=== PATIENT | male | born 1950 | race Caucasian/White ===

== ENCOUNTER 2017-05-31 18:50 | Inpatient (IN) ==
[~2017-05-31 18:50] MED LIST: *HR* Atropine Sulfate 1 MG/10 ML SYRINGE IV ONE
[2017-05-31] MEDS ORDERED: 0.9 % Sodium Chloride 1,000 ML ONE ×3 (18:54→19:15)
[2017-05-31] MEDS ORDERED: *HR* Heparin 5,000 UNIT/ML VIAL ONE (18:54)
[2017-05-31] MEDS ORDERED: *HR* Ticagrelor 90 MG TABLET ONE (18:54)
[2017-05-31] MEDS ORDERED: *HR* Heparin 5,000 UNIT/ML VIAL IVP ONE (18:54)
[2017-05-31] MEDS ORDERED: *HR* Ticagrelor 90 MG TABLET PO ONE (18:54)
--- NOTE | 2017-05-31 18:57 | Emergency Department Note ---
Disposition Clinical Impression: Acute anterior wall TN Disposition: Admitted As Inpatient Condition: Critical Forms: ED Satisfaction Letter Time of Disposition: 19:00 Chest Pain HPI - General Chief Complaint: ED Chest Pain Stated Complaint: STEMI Time Seen by Provider: 05/31/17 18:51 Source: patient, EMS Mode of arrival: EMS Limitations: no limitations Vital Signs Reviewed: Yes Nursing Notes Reviewed: Yes - History of Present Illness HPI Narrative: 66-year-old who developed chest pain about 2-1/2 hours ago seen at the [facility] found to have an acute inferior TN. Patient has no history of previous TN according to the patient. No bleeding problems. The EKG from the PA shows ST segment elevation in 23 aVF with depression in V1 and V2. Pt complaint: chest pain Onset (ago): hour(s) (2) Duration: constant Onset: during rest Pain Location: substernal, left chest Severity: moderate Severity scale (1-10): 3 Quality: tightness, aching, heaviness Pain Radiation: none Improves with: nothing Worsens with: nothing Associated symptoms: Reports: dyspnea Treatments prior to arrival chest pain: aspirin - Related Data Home Medications Medication Instructions Recorded Confirmed Albuterol Sulfate [Albuterol 2 puff IH QID PRN 05/31/17 05/31/17 Inhaler] Amlodipine Besylate 10 mg PO DAILY 05/31/17 05/31/17 Budesonide/Formoterol 160/4.5 2 puff IH BIDR 05/31/17 05/31/17 [Symbicort 160/4.5] Calcium Acetate [Phos-LO] 667 mg PO TIDWM 05/31/17 05/31/17 Ergocalciferol (VITAMIN D2) 800 unit PO DAILY 05/31/17 05/31/17 [Vitamin D] Omeprazole [PriLOSEC] 20 mg PO DAILY 05/31/17 05/31/17 Tiotropium [Spiriva] 18 mcg IH 0700 05/31/17 05/31/17 hydroCHLOROthiazide 25 mg PO DAILY 05/31/17 05/31/17 [Hydrochlorothiazide] Allergies Allergy/AdvReac Type Severity Reaction Status Date / Time No Known Allergies Allergy Verified 05/31/17 18:53 Constitutional: Denies: fever, chills, weakness, weight change Eyes: Denies: eye pain, eye discharge, vision change ENT ED: Denies: ear pain, throat pain, dental pain, hearing loss, epistaxis, congestion, dysphagia Cardiovascular: Reports: chest pain. Denies: palpitations, dyspnea on exertion , edema, syncope Respiratory: Denies: cough, dyspnea, wheezes, hemoptysis, stridor Gastrointestinal: Denies: abdominal pain, nausea, vomiting, diarrhea, constipation, hematemesis, melena, hematochezia Genitourinary: Denies: urgency, dysuria, frequency, hematuria Musculoskeletal: Denies: back pain, neck pain, arthralgia, myalgia Integumentary: Denies: rash, abrasion, lesions Neurological: Denies: headache, weakness, numbness, paresthesias, confusion, abnormal gait, vertigo Psychiatric: Denies: anxiety, depression, suicidal thoughts, homicidal thoughts , auditory hallucinations, visual hallucinations Endocrine: Denies: fatigue Hematological/Lymphatic: Denies: easy bleeding, easy bruising Allergic/Immunologic: Denies: facial swelling, urticaria Physical Exam - General Limitations: no limitations General appearance: alert, in no apparent distress - Head Head exam: atraumatic, normocephalic, normal inspection - Eye Eye exam: Present: normal appearance, PERRL, EOMI - ENT ENT exam: normal exam, normal oropharynx, mucous membranes moist - Neck Neck exam: Present: normal inspection - Chest Chest inspection: Present: normal inspection, symmetric chest wall rise - Respiratory Respiratory exam: Present: normal lung sounds bilaterally - Cardiovascular Cardiovascular exam: Present: regular rate, normal rhythm, normal heart sounds - Abdominal Exam Abdominal exam: Present: soft, Non-Tender. Absent: tenderness, distention, guarding, rebound, rigidity - Extremities Exam Extremities exam: Present: normal inspection, full ROM. Absent: tenderness, pedal edema - Expanded Lower Extremity Exam Neurovascular/Tendon exam: Absent: motor deficit, sensory deficit, tendon deficit Gait: not tested/not observed - Back Exam Back exam: Present: normal inspection, full ROM. Absent: tenderness - Neurological Exam Neurological exam: Present: alert, oriented X3 - Psychiatric Psychiatric exam: Present: normal affect, normal mood - Skin Skin exam: Present: warm, dry, intact, normal color Course - Consultations Consultation #1: Discussed with , it. Time: 19:00 Chest Pain - EKG Data EKG attestation: Yes I reviewed and interpreted this EKG. EKG shows normal: sinus rhythm Rate: normal Rhythm: NSR ST segment elevation in: II, III, aVF ST segment depression in: v1, v2 Interpretation: acute TN Heart Score - Score History: Highly Suspicious EKG: Significant ST-Depression Age: Greater than 65 Risk Factors: Equal/Greater than 3 risk factor or history of atherosclerotic disease Troponin: 1-3x normal limit HEART Score Total: 9 Critical Care Time Critical Care Time: Yes Total Critical Care Time: 30 Attestation: The high probability of a clinically significant, sudden or life threatening deterioration of the [cardiovascular] system(s) required my full and direct attention, intervention and personal management. The aggregate critical care time was [30] minutes. This time is in addition to time spent performing reported procedures but includes the following: [x] Data Review and interpretation [x] Patient assessment and monitoring of vital signs [x] Documentation [x
[2017-05-31] MEDS ORDERED: Heparin 1,000 UNITS/500 mL NS 500 ML ONE (19:04)
[2017-05-31] MEDS ORDERED: *HR* Heparin 10,000 UNIT/10 ML VIAL ONE (19:04)
[2017-05-31 19:06] LABS: Basophils % 0.4 %; Eosinophils # 0.1 K/mcL (0.0-0.6); Eosinophils % 1.3 %; Hemoglobin 12.9 g/dL (12.9-16.9); Immature Granulocytes % 0.4 % (0-4); Immature Platelets 3.2 % (1.1-6.1); Lymphocytes # 1.6 K/mcL (0.6-4.6); Lymphocytes % 16.5 %; Mean Corpuscular HGB Conc 32.3 g/dL (31.6-35.5); Mean Corpuscular Hemoglobin 29.4 pg (28.0-33.3); Mean Corpuscular Volume 91.1 fL (83.0-100.0); Mean Platelet Volume 9.2 fL (9.4-12.4); Monocytes # 0.5 K/mcL (0.0-1.3); Monocytes % 5.4 %; Neutrophils # 7.2 K/mcL (1.6-8.9); Platelet Count 227 K/mcL (140-400); Red Blood Count 4.39 M/mcL (4.19-5.50)
[2017-05-31] MEDS ORDERED: Nitroglycerin 1,000 MCG/10 ML VIAL IV ONE (19:10)
[2017-05-31 19:13] LABS: INR 1.1; Prothrombin Time 12.3 Seconds (9.4-12.1)
[2017-05-31 19:15] LABS: Activated Partial Thrombo Time 28.8 Seconds (26.0-36.0)
[2017-05-31 19:17] LABS: Calcium 10.4 mg/dL (8.6-10.8); Potassium 3.7 mEq/L (3.5-4.5)
[2017-05-31] MEDS ORDERED: *HR* FentaNYL (PF) 100 MCG/2 ML VIAL ONE (19:23)
[2017-05-31] MEDS ORDERED: *HR* Midazolam HCl 2 MG/2 ML VIAL ONE (19:24)
[2017-05-31] MEDS ORDERED: Tirofiban 12.5 MG/250ML 12.5 MG/250 ML BAG ONE (19:30)
[2017-05-31] MEDS ORDERED: DOPamine Premix 0 MG/0 ML BAG ONE (19:39)
[2017-05-31] MEDS ORDERED: *HR* Atropine Sulfate 1 MG/10 ML SYRINGE ONE ×2 (20:02→22:04)
--- NOTE | 2017-05-31 20:15 | Cardiology History & Physical ---
Date of Encounter: 05/31/17 Time of Encounter: 20:13 Assessment and Plan (1) ST elevation myocardial infarction (STEMI) of inferior wall Current Visit: Yes Status: Acute The assessment and plan as outlined above was discussed with the patient and/or family members who expressed understanding and agreement. All questions were answered. Typical angina with inferior STEMI on EKG, R/B/A discussed with pt agrees to proceed. History of Present Illness Chief complaint: chest pain HPI: Mr. Bales is a 66 year old male with h/o COPD, HTN, active smoker who presents with RSCP tightness [facility] found to have inferior ST elevations on EKG. Pain is non radiating ongoing with no radiation or associated symptoms. Emergent LHC was discussed including the R/B/ A and the patient agreed to proceed. ACS meds administered in the ED Past Med Surg Social Fam HX - Past Medical History Medical history: COPD, hypertension Psychiatric history: no psych history - Social History Smoking Status: Current every day smoker Smokeless Tobacco Status: No Alcohol use: none Drug use: marijuana Medications and Allergies Albuterol Sulfate [Albuterol Inhaler] 2 puff IH QID PRN 05/31/17 [History] Amlodipine Besylate 10 mg PO DAILY 05/31/17 [History] Budesonide/Formoterol 160/4.5 [Symbicort 160/4.5] 2 puff IH BIDR 05/31/17 [ History] Calcium Acetate [Phos-LO] 667 mg PO TIDWM 05/31/17 [History] Ergocalciferol (VITAMIN D2) [Vitamin D] 800 unit PO DAILY 05/31/17 [History] Omeprazole [PriLOSEC] 20 mg PO DAILY 05/31/17 [History] Tiotropium [Spiriva] 18 mcg IH 0700 05/31/17 [History] hydroCHLOROthiazide [Hydrochlorothiazide] 25 mg PO DAILY 05/31/17 [History] 3 Allergy/AdvReac Type Severity Reaction Status Date / Time No Known Allergies Allergy Verified 05/31/17 18:53 All Systems Review: A 10-system review of systems was performed and is negative for pertinent findings except as documented above in the HPI. Physical Examination General: Conversant, No Apparent Distress HEENT: Atraumatic, Normocephaly, Mucus Membranes Moist Neck: No JVD, Normal carotid pulses Cardiac: Reg Rate and Rhythm, Normal S1 and S2, No Murmur Lungs: Normal Breath Sounds, No Wheeze, Rales, Rhonchi Neuro: Alert and responsive, No focal deficits noted Abdomen: Soft, Non-Tender Skin: No rashes noted on visualized skin Musculoskeletal: No Chest Wall Tenderness Extremities: No Clubbing, No Cyanosis, No Edema, Normal Pulses Results 05/31/17 18:56 05/31/17 18:56
[2017-05-31] MEDS ORDERED: Tirofiban 12.5 MG/250ML 12.5 MG/250 ML BAG IVC SCH (20:30)
--- NOTE | 2017-05-31 20:53 | Invasive Diagnostic Lab Proc ---
Name: Tito Bales Date of Study: 05/31/2017 Date: 1950 Ht: 70.9in Medical Record#: [id number] Age: 66 Wt: 213.85lb Gender: Male BSA: 2.17 Order #: [id number] BMI: 29.94 Physicians Procedure Physician: Jose Kebede MD Referring MD: [facility] Referring MD: Staff Name Position Time In Alejandra Burnett RT (R) Scrub 07:24 PM Vibha Marroquin RN Heating And Ventilation Engineer 07:25 PM Pola Terrazas RN Monitor 07:25 PM Debbie Driscoll RT (R) Monitor 07:25 PM Indications Indication STEMI Procedures Performed Procedure L HRT ARTERY/VENTRICLE ANGIO PRQ CARD REVASC MA 1 VSL Pre-Procedure Checklist Informed consent is complete signed and on chart. H&P is on chart. ID band is on and ID verified with patient. Patient NPO for procedure The procedure was described for the patient and questions were answered. ECG is on chart. Plan of Care Patient will tolerate the procedure without complications. Adequate level of comfort will be maintained. Hemodynamics will remain stable Patient will recover from procedure without complications. Respiratory function will be maintained. Cardiac rhythm will remain stable. Patient temperature will be maintained. Patient and/or family have verbalized understanding of the procedure. Patient Education Intravenous Access Time IV Size Location DC'd Fluid/Drip Rate Units RN 08:21 PM 18g 1 1/4" Patent On Arrival Lt Antecubital 0.9NaCl 25 ml/hr Vibha Marroquin RN 08:21 PM 20g 1 1/4" Patent On Arrival Rt Forearm Vibha Marroquin RN Allergies No Known Allergies Vital Signs Time BP (mmHg) HR (bpm) O2 Sat. RR (bpm) LOC 07:24 PM 170 / 101 96 91 % 18 07:29 PM 153 / 94 98 91 % 25 07:34 PM 150 / 86 91 93 % 12 07:36 PM 118 / 77 34 94 % 12 07:38 PM 90 / 66 103 96 % 20 07:43 PM 99 / 70 83 95 % 27 07:48 PM 104 / 69 79 93 % 13 07:52 PM 101 / 69 76 92 % 10 07:53 PM 105 / 71 80 91 % 11 07:59 PM 108 / 67 71 92 % 13 08:04 PM 102 / 71 78 91 % 15 08:09 PM 106 / 74 80 92 % 13 Procedural Medications Time Medication Dose Units Method Given By 07:25 PM Oxygen 2 L/min nasal cannula Vibha Marroquin RN 07:25 PM Versed 1 mg Intravenous Vibha Marroquin RN 07:25 PM Fentanyl 50 mcg Intravenous Vibha Marroquin RN 07:27 PM Lidocaine 2% 10 ml Subcutaneous Jose Kebede MD 07:28 PM Fentanyl 25 mcg Intravenous Vibha Marroquin RN 07:37 PM Atropine 1 mg Intravenous Vibha Marroquin RN 07:49 PM Aggrastat Bolus: 50 ml Intravenous LopezVibha sanchez RN 07:49 PM Aggrastat 5mg/100ml 18 ml/hr Intravenous Vibha Marroquin RN ASA Classification: Emergent Procedure: ASA score is assumed Luis F Score Preprocedure Postprocedure Activity 2- Moves 4 extremities sustained head lift Activity Circulation 2- SBP +/= 20 points of pre-anesthetic level Circulation Consciousness 2- Awake and alert oriented x 3 Consciousness O2 Saturation 1- Needs O2 inhalation to maintain O2 saturation of 90% O2 Saturation Respiratory 2- Able to deep breathe and cough well Respiratory Total Score 9 Total Score Contrast Agent: Isovue Diagnostic Contrast: 196 ml Total Contrast: 196 ml Fluoro Dose: 1367 mGy Activated Clotting Time Time Seconds to Clot 08:01 PM 323 Procedure Log Time Note Enter By 07:16 PM Pt arrived to research lab assistant 1 at 19:16 tsites 07:17 PM Alejandra Burnett RT (R) Position: Scrub Time in: 19:24 tsites 07:17 PM Vibha Marroquin RN Position: Heating And Ventilation Engineer Time in: 19:25 tsites 07:17 PM Pola Terrazas RN Position: Monitor Time in: 19:25 tsites 07:17 PM Debbie Driscoll RT (R) Position: Monitor Time in: 19:25 tsites 07:23 PM Vitals capture started with the following parameters, Patient=Adult, Interval=5 min, Initial Xnsgznlh=684 mmHg, Deflation Rate=5 mmHg, Cuff placed on Left Arm 07:24 PM HR=96 bpm, QNJP=787/101 mmhg, SpO2=91.0 %, Resp=18 B/min 07:25 PM Patient charges- Angio tray pack, Navilyst 3mm J, Pulse Oximetry and ACIST tubing and transducer tsites 07:25 PM Case Delayed No tsites 07:25 PM Physician arrived 19:25 tsites 07: PM Meet and greet completed tsites 07: PM Procedure start 19:25 tsites 07: PM Time: 19:25 Oxygen on at 2 L/min per nasal cannula by Vibha Marroquin RN tsites 07: PM Time: 19:25 Versed 1 mg Intravenous Given by Vibha Marroquin RN tsites 07: PM Time: 19:25 Fentanyl 50 mcg Intravenous Given by Vibha Marroquin RN tsites 07: PM Recorded ECG: TR=218 Condition=Condition 1 07: PM Time out performed according to hospital policy tsites 07: PM Time: 19:27 10 ml Lidocaine 2% to right groin Subcutaneous Given by Jose Kebede MD tsites 07:28 PM PCI Status Emergency tsites 07: PM Pressure channel 1 zeroed. 07:28 PM Inflation device was opened. tsites 07:28 PM Time: 19:28 Fentanyl 25 mcg Intravenous Given by Vibha Marroquin RN tsites 07:28 PM Pressure channel 1 zero failed. 07:29 PM Pressure channel 1 zeroed. 07:29 PM HR=98 bpm, TLXB=037/94 mmhg, SpO2=91.0 %, Resp=25 B/min 07:29 PM Micro-Introducer Kit utilized for sheath placement tsites 07:29 PM Access obtained by percutaneous puncture. 6Fr 10cm Terumo Coleraine sheath placed in right Femoral artery. [id number] tsites 07:29 PM 0.035 145cm Navilyst 3mmJ wire [id number] tsites 07:30 PM Recorded Pressure: Ao, HR=97, Condition=Condition 1 (Aorta) Ao 145/88/111 07:30 PM 6Fr JR 4 [place] Bright-Tip guide catheter was used to cannulate the PCI vessel successfully. reused? No tsites 07:30 PM RCA angiography performed in multiple views. tsites 07:31 PM .014 Fielder 180cm guide wire across target lesion- successful. reused? No tsites 07:34 PM HR=91 bpm, WGZT=303/86 mmhg, SpO2=93.0 %, Resp=12 B/min, Comment=sr 07:34 PM RCA lesion crossed with wire tsites 07:35 PM troponin 0.23, dr. moussa notified, plan of care remains the same csmith 07:36 PM NIBP STAT measurement started. 07:36 PM 2.0 mm x 12 mm Emerge Monorail balloon across target lesion- successful. reused? No csmith 07:36 PM Balloon inflated @ 10 martín for 11 seconds csmith 07:36 PM HR=34 bpm, IVVE=765/77 mmhg, SpO2=94.0 %, Resp=12 B/min 07:37 PM Balloon inflated @ 6 martín for 5 seconds csmith 07:37 PM Time: 19:37 Atropine 1 mg Intravenous Given by Vibha Marroquin RN csmith 07:37 PM NIBP STAT measurement started. 07:38 PM XV=064 bpm, NIBP=90/66 mmhg, SpO2=96.0 %, Resp=20 B/min 07:38 PM balloon removed intact csmith 07:41 PM 2.5 mm x 15 mm Emerge Monorail balloon across target lesion- successful. reused? No csmith 07:41 PM Balloon inflated @ 6 martín for 5 seconds csmith 07:41 PM Balloon inflated @ 6 martín for 5 seconds csmith 07:41 PM Balloon inflated @ 6 martín for 6 seconds csmith 07:42 PM Balloon inflated @ 6 martín for 6 seconds csmith 07:42 PM Balloon inflated @ 10 martín for 4 seconds csmith 07:42 PM PCI lesion in Mid RCA. Pre Stenosis: 100 Pre CONNER Flow: 0 csmith 07:43 PM HR=83 bpm, NIBP=99/70 mmhg, SpO2=95.0 %, Resp=27 B/min 07:45 PM balloon removed intact csmith 07:45 PM 3.5mm x 16mm Synergy drug-eluting stent across target lesion- successful Lot #[id number] distal RCA csmith 07:46 PM Stent deployed @ 11 martín for 4 seconds csmith 07:47 PM Stent balloon reinflated @ 16 martín for 10 seconds csmith 07:47 PM Stent balloon reinflated @ 9 martín for 5 seconds csmith 07:48 PM Stent balloon reinflated @ 10 martín for 5 seconds csmith 07:48 PM Stent balloon reinflated @ 10 martín for 3 seconds csmith 07:48 PM HR=79 bpm, RRIG=647/69 mmhg, SpO2=93.0 %, Resp=13 B/min 07:49 PM Time: 19:49 Aggrastat Bolus: 50 ml Intravenous Given by Boutte, Vibha RN Vargas IV pump csmith 07:49 PM Time: 19:49 Aggrastat 5mg/100ml 18 ml/hr Intravenous Given by Vibha Marroquin RN Vargas pump csmith 07:49 PM stent delivery system removed intact csmith 07:51 PM 4.0mm x 28mm Synergy drug-eluting stent across target lesion- successful Lot #[id number] csmith 07:51 PM NIBP STAT measurement started. 07:52 PM HR=76 bpm, CSUC=388/69 mmhg, SpO2=92.0 %, Resp=10 B/min 07:52 PM Stent deployed @ 9 marítn for 9 seconds csmith 07:53 PM Stent balloon reinflated @ 14 martín for 9 seconds csmith 07:53 PM HR=80 bpm, FWLZ=389/71 mmhg, SpO2=91.0 %, Resp=11 B/min 07:55 PM PCI lesion in Distal RCA. Pre Stenosis: 100 Pre CONNER Flow: 0: No Flow/No perfusion csmith 07:55 PM stent delivery system removed intact csmith 07:56 PM 4.0mm x 8mm Synergy drug-eluting stent across target lesion- successful Lot #[id number] csmith 07:57 PM Stent deployed @ 14 martín for 4 seconds csmith 07:58 PM Stent balloon reinflated @ 14 martín for 6 seconds csmith 07:59 PM HR=71 bpm, WNSO=752/67 mmhg, SpO2=92.0 %, Resp=13 B/min 08:00 PM stent delivery system removed intact csmith 08:01 PM 4.0 mm x 12mm NC Emerge balloon across target lesion- successful. reused? No csmith 08:01 PM At 20:01 the ACT was 323 seconds. csmith 08:02 PM wire and balloon removed (undeployed & intact) csmith 08:03 PM catheter removed csmith 08:03 PM 6Fr FL 4 catheter inserted over the wire DNC csmith 08:04 PM HR=78 bpm, AENR=293/71 mmhg, SpO2=91.0 %, Resp=15 B/min 08:04 PM LCA angiography performed in multiple views. csmith 08:05 PM Lesion found in Mid Circumflex. Pre Stenosis: 50 Pre CONNER Flow: 3: Complete and Brisk Flow/Perfusion csmith 08:05 PM Lesion found in Distal Circumflex. Pre Stenosis: 75 Pre CONNER Flow: 3: Complete and Brisk Flow/Perfusion csmith 08:05 PM catheter removed csmith 08:05 PM 6Fr Pigtail catheter inserted over the wire DNC csmith 08:05 PM Catheter selectively placed in left ventricle csmith 08:06 PM Pain 'pretty much gone' per patient csmith 08:06 PM Recorded Pressure: LV, HR=79, Condition=Condition 1 (Left Ventricle) LV 89/10/14 08:06 PM Bolus angiogram of left Ventricle complete: 10 ml/sec for a total of 20 mls csmith 08:07 PM Recorded Pressure: LV, Ao, HR=80, Condition=Condition 1 (Left Ventricle) LV 70/22/22, (Aorta) Ao 79/49/65 08:07 PM Catheter removed csmith 08:08 PM wire removed csmith 08:09 PM HR=80 bpm, MUIH=852/74 mmhg, SpO2=92.0 %, Resp=13 B/min 08:13 PM bolus angio of R femoral artery 4 for 7 csmith 08:13 PM Procedure completed at 20:13 csmith 08:14 PM Sign out completed: Radiation Dose 1367 mGy Fluoro Time: 15.6 Isovue 370 - 200ml contrast 196 ml given by Jose Kebede MD. Complications: NoneCardiac Rehab Consult needed: YesConfirmed administered medications: Yes csmith 08:14 PM Isovue 370 - 200ml,1 Bottle(s) used. csmith 08:14 PM Sheath left in place to be pulled on floor/holding area csmith 08:14 PM Estimated Blood Loss: less than 20cc csmith 08:15 PM Post ECG NSR csmith 08:15 PM Post Blood Pressure 119/77 csmith 08:15 PM Information taught PCI csmith 08:15 PM Education needs Responsibilities of Patient in Care csmith 08:15 PM Learning barriers :None csmith 08:15 PM Education Methods Verbal csmith 08:15 PM Education evaluation Able to repeat information csmith 08:15 PM Site status No bleeding/hematoma - Rt Groin as reported by Alejandra Burnett RT (R) at 20:15 csmith 08:15 PM Opsite applied csmith 08:15 PM Plavix, Effient or Brilinta given No - given in ED csmith 08:15 PM Family placed in consult room. csmith 08:17 PM 20:16 Post Pulses Bilateral DP Doppler csmith 08:26 PM Report given to Conner BURK. Awaiting bed to be cleaned at this time. csmith 08:45 PM Patient out of room: 20:45 csmith Complications Complication None None Hemodynamics Pressures Site Systolic/A Wave Diastolic/V Wave Mean AO 145 88 111 LV 89 10 14 LV 70 22 22 AO 79 49 65 Post Procedure Information Blood Pressure: 119/77 mmHg Rhythm: NSR Post procedural instructions were given Site Checks Time Location Status Staff Sheath In? Note 08:15 PM Rt Groin No bleeding/hematoma Alejandra Burnett RT (R) Pulses Time Site Pre-Procedure Post-Procedure Note 8:16:00 PM Bilateral DP Doppler Updated by Debbie Driscoll RT (R) on 05/31/2017 8:45:48 PM Debbie Driscoll RT electronically signed on 05/31/2017 8:46:08 PM with status of Final
[2017-05-31] MEDS: *HR* Morphine 2 MG/ML SYRINGE IVP PRN (21:48)
[2017-06-01] MEDS: *HR* Morphine 2 MG/ML SYRINGE IVP PRN ×3 (01:46→19:35)
[2017-06-01 05:35] LABS: Basophils # 0.1 K/mcL (0.0-0.2); Basophils % 0.6 %; Eosinophils # 0.1 K/mcL (0.0-0.6); Eosinophils % 1.4 %; Hematocrit 36.4 % (37.5-50.1); Hemoglobin 11.6 g/dL (12.9-16.9); Immature Granulocytes % 0.4 % (0-4); Lymphocytes # 1.7 K/mcL (0.6-4.6); Mean Corpuscular HGB Conc 31.9 g/dL (31.6-35.5); Mean Corpuscular Hemoglobin 29.5 pg (28.0-33.3); Mean Corpuscular Volume 92.6 fL (83.0-100.0); Mean Platelet Volume 10.4 fL (9.4-12.4); Monocytes # 0.6 K/mcL (0.0-1.3); Monocytes % 7.1 %; Neutrophils # 5.6 K/mcL (1.6-8.9); Platelet Count 209 K/mcL (140-400); Red Blood Count 3.93 M/mcL (4.19-5.50); Red Cell Distribution Width 16.4 % (11.5-14.5); Segmented Neutrophils % 69.5 %
[2017-06-01 05:39] LABS: BUN/Creatinine Ratio 18 (6-26); Blood Urea Nitrogen 25 mg/dL (8-26); Calcium 9.3 mg/dL (8.6-10.8); Carbon Dioxide 30 mEq/L (19-29); Chloride 97 mEq/L (98-109); Glucose 98 mg/dL (70-99); Osmolality,Calculated 288 (280-300); Potassium 3.9 mEq/L (3.5-4.5); Sodium 137 mEq/L (136-145); eGFR For African Americans > 60 (> 60); eGFR For Non-African Americans 50 (> 60)
[2017-06-01] MEDS ORDERED: Aspirin 81 MG TAB.CHEW PO SCH (09:00)
[2017-06-01] MEDS ORDERED: *HR* Ticagrelor 90 MG TABLET PO SCH (09:00)
--- NOTE | 2017-06-01 10:07 | Cardiology Progress Note ---
Date of Encounter: 06/01/17 Time of Encounter: 09:00 Assessment and Plan (1) ST elevation myocardial infarction (STEMI) of inferior wall Current Visit: Yes Status: Acute Per Cardiology: Presented with typical angina with inferior STEMI on EKG. troponin 0.23. Status post emergent catheterization with PTCA/drug-eluting stent to mid RCA 100% lesion and distal RCA 100% lesion with a total of 3 stents. Has mid circumflex 50% and distal circumflex 75% lesion deemed small caliber vessel with recommendations for medical management. Currently chest pain-free. Echo pending. On aspirin, statin, Brilinta. We'll add beta elizabeth. Plan to transfer to floor today. All questions answered. (2) Nicotine abuse Current Visit: Yes Status: Acute Per Cardiology: I did provide 3-5 minutes and a smoking cessation counseling, patient is contemplating. Discussion w patient/family: The assessment and plan as outlined above was discussed with the patient and/or family members who expressed understanding and agreement. All questions were answered. Thank you for involving us in the care of your patient. Please call with any questions. Subjective Principal diagnosis: STEMI Interval history: Patient denies any chest pain, shortness of breath, palpitations. Denies any concerns regarding his right groin site. Denies any bleeding or blood loss. Objective Vital Signs, Last 4 Hours Temp Pulse Resp BP Pulse Ox 06/01/17 07:37 86 18 133/98 95 06/01/17 07:25 97.7 F General: Conversant, No Apparent Distress HEENT: Atraumatic, Normocephaly, Mucus Membranes Moist Neck: No JVD, Normal carotid pulses Cardiac: Reg Rate and Rhythm, Normal S1 and S2, No Murmur Lungs: Normal Breath Sounds, No Wheeze, Rales, Rhonchi Neuro: Alert and responsive, No focal deficits noted Abdomen: Soft, Non-Tender Skin: No rashes noted on visualized skin, Other (Right groin site dry and intact , no hematoma, no bleeding, no ecchymosis, right DP and PT pulses 2+ palpable) Musculoskeletal: No Chest Wall Tenderness Extremities: No Clubbing, No Cyanosis, No Edema, Normal Pulses Results 06/01/17 04:43 06/01/17 04:43 Lab Results 06/01/17 06/01/17 04:43 04:43 WBC 8.0 Hgb 11.6 L Hct 36.4 L Plt Count 209 Sodium 137 Potassium 3.9 Chloride 97 L Carbon Dioxide 30 H BUN 25 Creatinine 1.40 H Glucose 98 Calcium 9.3 - Imaging and Cardiology Echo: pending Cardiac cath: report reviewed - EKG Interpretation EKG results cardiology: other (Sinus rhythm on telemetry) - VTE Reasons for not Prescribing Prophylaxis: Not indicated-Anticoagulated or INR therapeutic Consult Discharge Plan - Plan Referrals: NONE,PCP [Primary Care Provider] - Ashly Flores [Family Provider] -
[2017-06-01] MEDS ORDERED: Budesonide/Formoterol 160/4.5 MDI IH SCH (10:15)
[2017-06-01] MEDS ORDERED: Cholecalciferol (D-3) 1,000 UNIT TABLET PO SCH (10:15)
[2017-06-01] MEDS ORDERED: Calcium Acetate 667 MG CAPSULE PO SCH ×2 (12:00→17:00)
[2017-06-01] MEDS: Nicotine 21 MG PATCH.TD24 TD SCH (16:12)
--- NOTE | 2017-06-01 16:43 | Electrocardiograph Report ---
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
[2017-06-01] MEDS: *HR* Ticagrelor 90 MG TABLET PO SCH (19:36)
[2017-06-01] MEDS: Budesonide/Formoterol 160/4.5 MDI IH SCH (20:23)
[2017-06-02] MEDS: *HR* Morphine 2 MG/ML SYRINGE IVP PRN (00:04)
[2017-06-02] MEDS ORDERED: Tiotropium 18 MCG inhalation IH SCH ×2 (07:00)
[2017-06-02 07:21] VITALS: BP 136/88
[2017-06-02] MEDS: Nicotine 21 MG PATCH.TD24 TD SCH (07:22)
[2017-06-02] MEDS: *HR* Ticagrelor 90 MG TABLET PO SCH (07:24)
[2017-06-02] MEDS: Budesonide/Formoterol 160/4.5 MDI IH SCH (07:43)
[2017-06-02 08:37] LABS: Basophils % 0.4 %; Eosinophils # 0.2 K/mcL (0.0-0.6); Eosinophils % 1.7 %; Hematocrit 39.4 % (37.5-50.1); Hemoglobin 12.5 g/dL (12.9-16.9); Immature Granulocytes % 0.2 % (0-4); Lymphocytes # 1.9 K/mcL (0.6-4.6); Lymphocytes % 20.4 %; Mean Corpuscular HGB Conc 31.7 g/dL (31.6-35.5); Mean Corpuscular Hemoglobin 29.3 pg (28.0-33.3); Mean Corpuscular Volume 92.5 fL (83.0-100.0); Mean Platelet Volume 9.1 fL (9.4-12.4); Monocytes # 0.5 K/mcL (0.0-1.3); Monocytes % 5.2 %; Neutrophils # 6.7 K/mcL (1.6-8.9); Platelet Count 200 K/mcL (140-400); Red Blood Count 4.26 M/mcL (4.19-5.50); Red Cell Distribution Width 16.1 % (11.5-14.5); Segmented Neutrophils % 72.1 %
[2017-06-02 08:52] LABS: BUN/Creatinine Ratio 18 (6-26); Blood Urea Nitrogen 25 mg/dL (8-23); Calcium 9.1 mg/dL (8.6-10.3); Carbon Dioxide 32 mEq/L (23-29); Chloride 98 mEq/L (98-107); Glucose 84 mg/dL (70-105); Osmolality,Calculated 284 (280-300); Potassium 3.5 mEq/L (3.5-5.1); Sodium 135 mEq/L (136-145); eGFR For African Americans > 60 (> 60); eGFR For Non-African Americans 50 (> 60)
[2017-06-02] MEDS ORDERED: Aspirin 81 MG TAB.CHEW PO SCH (09:00)
[2017-06-02] MEDS ORDERED: Cholecalciferol (D-3) 1,000 UNIT TABLET PO SCH (09:00)
--- NOTE | 2017-06-02 09:42 | Discharge Summary ---
Date of Encounter: 06/02/17 Time of Encounter: 09:39 - Discharge Diagnosis (1) ST elevation myocardial infarction (STEMI) of inferior wall Priority: Primary Status: Acute (2) CAD (coronary artery disease) Priority: Primary Status: Acute Qualifiers: Coronary Disease-Associated Artery/Lesion type: eagle artery [place] vs. transplanted heart: eagle heart Associated angina: angina presence unspecified Qualified Code(s): I25.10 - Atherosclerotic heart disease of eagle coronary artery without angina pectoris (3) Nicotine abuse Priority: Secondary Status: Acute - Discharge Medications Prescriptions: Nitroglycerin 0.4 mg SL Q5MIN PRN #30 tab.subl PRN Reason: Chest Pain Aspirin 81 mg PO DAILY #30 tab.chew Atorvastatin [Lipitor] 40 mg PO HS #30 tablet Metoprolol [Lopressor] 25 mg PO BID #60 tablet Nicotine Patch [Nicoderm] 21 mg TD DAILY #28 patch.td24 Ticagrelor [Brilinta] 90 mg PO BID #60 tablet Home Medications: Albuterol Sulfate [Albuterol Inhaler] 2 puff IH QID PRN 05/31/17 [History] Budesonide/Formoterol 160/4.5 [Symbicort 160/4.5] 2 puff IH BIDR 05/31/17 [ History] Ergocalciferol (VITAMIN D2) [Vitamin D] 800 unit PO DAILY 05/31/17 [History] Omeprazole [PriLOSEC] 20 mg PO DAILY 05/31/17 [History] Tiotropium [Spiriva] 18 mcg IH 0700 05/31/17 [History] Aspirin 81 mg PO DAILY #30 tab.chew 06/02/17 [Rx] Atorvastatin [Lipitor] 40 mg PO HS #30 tablet 06/02/17 [Rx] Metoprolol [Lopressor] 25 mg PO BID #60 tablet 06/02/17 [Rx] Nicotine Patch [Nicoderm] 21 mg TD DAILY #28 patch.td24 06/02/17 [Rx] Nitroglycerin 0.4 mg SL Q5MIN PRN #30 tab.subl 06/02/17 [Rx] Ticagrelor [Brilinta] 90 mg PO BID #60 tablet 06/02/17 [Rx] Allergies/Adverse Reactions: 3 Allergy/AdvReac Type Severity Reaction Status Date / Time No Known Allergies Allergy Verified 05/31/17 18:53 Procedures/tests Complete & Pending: Procedures Performed prior 72 hours Category Date Time Status ECG 12 lead ECG [ECG] Routine Y 05/31/17 20:17 Ordered ECG 12 lead ECG [ECG] Routine Y 06/01/17 07:00 Ordered ECG 12 lead ECG [ECG] Stat Y 05/31/17 20:17 Completed EV echocardiogram Routine Y 06/01/17 20:17 Completed Date of admission: 05/31/17 19:19 Primary care physician: PCP NONE Consults: 05/31/17 20:17 Consult to Cardiac Rehabilitation-Phase1 [CONS] Routine Comment: Reason for Consult: AMI Call Completed: Yes Consult to Nurse Navigator [CONS] Routine Comment: Discharging clinician: Barney Loyola Anticipated date of discharge: 06/02/17 - Patient Status Disposition: Home, Self-Care Condition: Critical Functional capacity at discharge: independent ambulation Overall status at discharge: patient is progressing back to baseline - Discharge Instructions Follow Up With: NONE,PCP [Primary Care Provider] - Ashly Flores [Family Provider] - Additional Instructions: RISK FACTORS: STOP SMOKING: If you smoke, STOP. Smoking or tobacco use significantly increases your risk of heart disease because nicotine causes the arteries to narrow or constrict. It also causes fats to stick to the artery. Your chances of having a heart attack are greatly increased if you continue to smoke. For more information, call the education line for smoking cessation 2-389-EMKNXRW EAT A LOW FAT/CHOLESTEROL/SODIUM DIET: This diet may help reduce your chances of having a heart attack. LIFTING: Avoid lifting anything more than 10 pounds for 5-7 days Prior to straining, laughing, sneezing and/or coughing, apply manual pressure directly over insertion site. ACTIVITY: You may walk or climb stairs as tolerated You can resume sexual activity as tolerated In general, you are encouraged to engage in a minimum of 30 minutes or more of moderate intensity physical activity, such as brisk walking, daily or at least 3 -4 times weekly BATHING Do not submerge the site into water (bath tub, hot tub, swimming pool) for 1 week. This can be a source for infection into the blood stream. You may shower after 24 hours SITE CARE: After 24 hours, you may remove the dressing and leave the site open to air. Keep the site clean and dry. Clean gently and pat dry. You can expect bruising and tenderness that gradually resolve within a week or two. Return to work as instructed per your physician Resume driving as instructed per physician Keep all scheduled follow up appointments Resume medications as instructed IMPORTANT: If prescribed a Platelet Aggregation Inhibitor such as, Plavix, Brilinta or Effient: Duration of therapy is minimum one year These medications are often used in combination with Aspirin in prevention of future heart attacks Never discontinue unless consult with your Portfolio Analyst STROKE (CVA) Risk factors for a stroke are: Age, cigarette smoking, diabetes, excessive alcohol consumption, family history, high blood pressure, overweight, physical inactivity, prior stroke, heart attack, diagnosis of carotid artery stenosis or other artery disease. Warning signs: Sudden numbness or weakness of the face, arm or leg; especially on one side of the body, sudden confusion, trouble speaking or understanding, sudden trouble seeing in one or both eyes, sudden trouble walking, dizziness, loss of balance or coordination, sudden severe headache with no cause. Call 911 or go to the Emergency Room. CONGESTIVE HEART FAILURE: If you have been diagnosed with Congestive Heart Failure (CHF) and your symptoms return, make an appointment with your physician Weigh yourself daily. Notify your physician if you have a weight gain of two or more pounds in one day or five or more pounds in one week. If you experience any difficulty breathing, please call 911 BLEEDING: Although the risk of bleeding is minimal, it can happen. If you have any bleeding from the site, apply firm pressure above the puncture site for 10-15 minutes. If the bleeding does not stop, continue manual pressure and call 911 Contact your physician if: You develop a fever greater than 101 degrees Fahrenheit Your site becomes reddened or has any drainage You have an increase in pain or burning at the site or if a large knot forms at the site. If you experience chest pain, shortness of breath, dizziness, or extreme tiredness, stop the activity and rest. Please notify your physicians office if you experience any of these symptoms and they are not relieved by rest please call 911! - Diet and Activity Activity: increase activity as tolerated Diet: low fat, low cholesterol - Hospital Course Hospital course: Mr. Bales is a 66 year old male that presented with typical angina with inferior STEMI on EKG. troponin 0.23. Status post emergent catheterization with PTCA/drug-eluting stent to mid RCA 100% lesion and distal RCA 100% lesion with a total of 3 stents. Has mid circumflex 50% and distal circumflex 75% lesion deemed small caliber vessel with recommendations for medical management. Currently chest pain-free. Echo EF 60%, mild concentric LVH, mild segmental LV systolic dysfunction, mild LVDD, no significant valvular dysfunction. DAPT (ASA and Brilinta) uninterrupted x 1 year. Pt verbalizes understanding. [facility], [facility]. Will get free 30 days of Brilinta filled at [facility], with plan to plavix load and switch to Plavix after 1 month of Brilinta. Statin and BB started. Right femoral access site healing well. No bleeding, hematoma or ecchymosis noted. Smoking cessation counseling given. Nicotine patch rx given. Labs and vitals are stable. D/C home in stable condition. Plan to follow- up in 1 week as outpt. Time spent discussing smoking cessation with patient: 3 to 10 minutes - Time Spent with Patient Total time spent providing and/or coordinating discharge services: Less than 30 minutes Physical Examination Vital Signs, Last 4 Hours Temp Pulse Resp BP Pulse Ox 06/02/17 07:20 98.5 F 75 19 136/88 97 Vital Signs Temp Pulse Resp BP Pulse Ox 06/02/17 07:20 98.5 F 75 19 136/88 97 06/02/17 04:10 71 06/02/17 03:48 98.1 F 71 19 120/83 95 06/02/17 00:04 67 06/01/17 23:52 98.2 F 70 18 110/67 94 06/01/17 20:27 17 91 06/01/17 19:36 84 06/01/17 19:02 98.4 F 85 17 128/76 91 06/01/17 15:42 97.6 F 78 18 138/83 92 06/01/17 13:33 98.1 F 84 18 114/75 90 06/01/17 12:31 75 18 126/83 94 06/01/17 11:46 98.0 F 06/01/17 11:19 16 96 06/01/17 11:00 80 18 136/82 93 06/01/17 10:00 80 20 130/85 94 Intake and Output 06/01/17 06/02/17 06/02/17 23:59 07:59 15:59 Intake Total 120 / 120 200 / 200 360 / 360 Output Total 575 / 575 Balance 120 / 120 -375 / -375 360 / 360 Intake: Oral 120 / 120 200 / 200 360 / 360 Output: Urine 575 / 575 Other: Meal Breakfast Percent of Meal Consumed 75% # Voids 1 Weight 94.483 kg Patient Weight 06/02/17 23:59 Weight 94.483 kg General: Conversant, No Apparent Distress HEENT: Atraumatic, Normocephaly, Mucus Membranes Moist Neck: No JVD, Normal carotid pulses Cardiac: Reg Rate and Rhythm, Normal S1 and S2, No Murmur Lungs: Normal Breath Sounds, No Wheeze, Rales, Rhonchi Neuro: Alert and responsive, No focal deficits noted Abdomen: Soft, Non-Tender Skin: Other (right femoral access site healing well. No bleeding, hematoma or ecchymosis noted.) Musculoskeletal: No Chest Wall Tenderness Extremities: No Clubbing, No Cyanosis, No Edema, Normal Pulses - VTE Reasons for not Prescribing Prophylaxis: Not indicated-Anticoagulated or INR therapeutic
--- NOTE | 2017-06-02 12:00 | Electrocardiograph Report ---
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
== END 2017-06-02 11:32 | disposition home or self-care (01) | DRG 247 ==
LOC: EMEROO 18:50 → ICNU 19:18 → 2NNU 06-01 13:10
PROVIDERS: ADMIT Internal Medicine Cardiovascular Disease; ATTEND Internal Medicine

== ENCOUNTER 2019-01-23 12:50 | Inpatient (IN) ==
--- NOTE | 2019-01-23 10:06 | Discharge Summary ---
Date of Encounter: 01/24/19 Time of Encounter: 12:45 - Discharge Diagnosis (1) Arthritis of left hip Priority: Primary Status: Chronic (2) Status post left hip replacement Priority: Primary Status: Acute (3) CAD (coronary artery disease) Priority: Secondary Status: Chronic Qualifiers: Coronary Disease-Associated Artery/Lesion type: unspecified vessel or lesion type [place] vs. 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 Bales is a 68 year old male POD#1 s/p Left Total Hip Replacment robotic-assisted [arthritis] 01/23/19 Patient seen at bedside. A&Ox3 Dressing and incision c/d/i No calf tenderness, erythema, or warmth. Neurovascularly intact b/l LE. Labwork, vitals, and medications reviewed. Pain control: Adequate Participating in therapy. All questions and concerns addressed. Educated on use of incentive spirometer, ambulation, and hydration. Patient educated on post-operative restrictions and care. Addressed: see above. Patient course and disposition discussed with Dr. Perdomo D/C plan: Home with outpatient therapy The patient's postoperative was uneventful. Progressed from intravenous analgesic needs to oral analgesic needs only. Remained neurovascularly intact and mobilized satisfactorily. All radiographic studies were satisfactory. P atient course and disposition discussed with Dr. Perdomo. Patient is discharged to home with plan for rehabilitation and outpatient orthopedic follow up has been arranged. - Time Spent with Patient Total time spent providing and/or coordinating discharge services: - Discharge Medications Prescriptions: New Docusate Sodium [Colace] 100 mg PO BID 5 Days #10 capsule OxyCODONE Immed Rel [Roxicodone 5 MG] 5 mg PO Q6HR PRN 5 Days #20 tablet PRN Reason: Severe Pain Continued Tiotropium [Spiriva] 18 mcg IH DAILY Omeprazole [PriLOSEC] 20 mg PO DAILY Budesonide/Formoterol 160/4.5 [Symbicort 160/4.5] 2 puff IH BIDR Albuterol Sulfate [Proventil Inhaler] 2 puff IH Q4H PRN PRN Reason: Shortness Of Breath Atorvastatin [Lipitor] 40 mg PO HS #30 tablet Clopidogrel [Plavix] 75 mg PO DAILY Metoprolol Tartrate 100 mg PO BID Albuterol Neb [Proventil Neb] 2.5 mg IH Q8H PRN PRN Reason: Shortness Of Breath amLODIPine [Norvasc] 5 mg PO BID Magnesium Oxide [Magnesium] 400 mg PO DAILY Duloxetine HCl [Cymbalta] 60 mg PO DAILY Home Medications: Albuterol Sulfate [Proventil Inhaler] 2 puff IH Q4H PRN 05/31/17 [History] Budesonide/Formoterol 160/4.5 [Symbicort 160/4.5] 2 puff IH BIDR 05/31/17 [History] Omeprazole [PriLOSEC] 20 mg PO DAILY 05/31/17 [History] Tiotropium [Spiriva] 18 mcg IH DAILY 05/31/17 [History] Atorvastatin [Lipitor] 40 mg PO HS #30 tablet 06/02/17 [Rx] Albuterol Neb [Proventil Neb] 2.5 mg IH Q8H PRN 06/06/18 [History] Clopidogrel [Plavix] 75 mg PO DAILY 06/06/18 [History] Magnesium Oxide [Magnesium] 400 mg PO DAILY 06/06/18 [History] Metoprolol Tartrate 100 mg PO BID 06/06/18 [History] amLODIPine [Norvasc] 5 mg PO BID 06/06/18 [History] Docusate Sodium [Colace] 100 mg PO BID 5 Days #10 capsule 01/23/19 [Rx] Duloxetine HCl [Cymbalta] 60 mg PO DAILY 01/23/19 [History] OxyCODONE Immed Rel [Roxicodone 5 MG] 5 mg PO Q6HR PRN 5 Days #20 tablet 01/23/19 [Rx] Allergies/Adverse Reactions: Allergy/AdvReac Type Severity Reaction Status Date / Time No Known Allergies Allergy Verified 01/23/19 14:06 Date of admission: 01/23/19 Primary care physician: PCP [place] Discharging clinician: Roman Perdomo Anticipated date of discharge: 01/24/19 - VTE Documentation of Mechanical Device: Venous foot pump, device - Patient Status Disposition: Home, Self-Care Condition: Good Functional capacity at discharge: uses cane/walker Overall status at discharge: patient is progressing back to baseline - Discharge Instructions Follow [facility] With: [facility] [Primary Care Provider] - Additional Instructions: Discharge Instructions: Total Hip Replacement Please call [facility] ([phone]), your Primary Care Physician, or report to the Emergency Room if you have any of the following symptoms: Nausea, vomiting, fever greater that 101.5, swelling, chest pain, shortness of breath, increased pain/redness/drainage/odor for your incision site, numbness/tingling, or any other concerning symptoms. ACTIVITY:Weight-bearing as tolerated for 8 weeks with hip dislocation precautions that physical therapy taught you. You may progress as tolerated under the guidance of your physical therapist. You do not need to sleep with a pillow between your legs. You can also seep on the operative side or on your stomach. Incentive Spirometer 10 times an hour. MEDICATIONS: Upon discharge resume your home medications. Take all the medications as prescribed. Take a stool softener if taking narcotic pain medications. Stool softeners are only effective if you drink enough fluids. Drink 6-8 glass of water or fluids a day, unless this is not allowed for another health problem. Despite using stool softeners, if you haven't had a bowel movement in 3 days, please switch to a gentle laxative. Gentle laxatives are sold over the counter. You should have a bowel movement within 24 hours, if not call the office. You will be discharged from the hospital with a prescription for pain medication. You are encouraged to decrease the use of narcotic pain medication as tolerated. Should you require a refill, please call the office. [facility] prescribes narcotic pain medication for only 4-6 weeks after surgery. If you require pain medication beyond this time period, you may be referred to your Primary Care Physician or to the Pain Clinic for further evaluation. Plan ahead for refills on pain medication as many narcotics either need to be picked up at the office or mailed. It is best to call 48-72 hours in advance of needing a prescription refill so you don't run out of medication. To help control the post-operative pain, you may take NSAIDs (Aleve,Advil, Motrin, ibuprofen, naprosyn) or Tylenol as prescribed on the bottle in addition to the pain medication. ANTICOAGULATION (blood thinners): Continue your Aspirin, Lovenox or Coumadin as prescribed to help prevent a blood clot in the leg or in the lungs. As long as your incision remains dry and you tolerate the NSAIDs (Aleve, Advil, Motrin, Ibuprofen, Naprosyn), it is OK to use the NSAIDS while you are taking your anticoagulation medication. Should your incision start to drain, stop the NSAID and contact our office. Common symptoms of blood clot in the legs include: localized pain, swelling, calf tenderness, redness or discoloration of the skin. Blood clot in the lung symptoms include: shortness of breath, rapid pulse, sweating, and chest pain that worsens with deep breathing, coughing up blood, lightheadedness, feelings of anxiety. If you experience any of these symptoms notify your physician immediately, go to the emergency room, or if having trouble breathing, call 911. WOUND CARE: Leave the dressing on for 7 to 10days. You may change the dressing if it is saturated greater than 50%. Do not get the dressing wet at anytime. Wash your hands with antibacterial soap, rinse and dry prior to any wound care. If you have malcolm the visiting nurse or rehab facility can remove the stapes 10-14 days after surgery and place steri-strips across the wound. Leave the steri-strips in place until they fall off on their own. You may let water from the shower run on top of the steri-strips. If you do not have a visiting nurse or rehab facility, you will need to return to the office at 10-14 days for the malcolm to be removed. If you have itching or redness around the dressing call the office. FOLLOW-UP: Please follow up with your surgeon in the orthopedic clinic in 6 weeks from the day of surgery. If you have malcolm that need to be removed, you will need to come back to the office in 10-14 days from the day of surgery. - Diet and Activity Activity: as per physical therapy Diet: advance to your usual diet
[2019-01-23] MEDS ORDERED: *HR* FentaNYL (PF) 100 MCG/2 ML VIAL ONE (13:03)
[2019-01-23] MEDS ORDERED: Propofol 500 MG/50 ML INFUS..BTL ONE ×2 (13:05→15:33)
[2019-01-23] MEDS ORDERED: Lidocaine -MPF 2% 2 ML VIAL ONE (13:05)
[2019-01-23] MEDS ORDERED: Tranexamic Acid 1,000 MG/10 ML VIAL ONE (13:06)
--- NOTE | 2019-01-23 13:15 | Anesthesia Evaluation PreOp ---
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) Anesthesia History: No Prior Anesthetic Complications Alcohol Use: none Drug use: marijuana Medications and Allergies Albuterol Sulfate [Proventil Inhaler] 2 puff IH Q4H PRN 05/31/17 [History] Budesonide/Formoterol 160/4.5 [Symbicort 160/4.5] 1 puff IH BIDR 05/31/17 [History] Omeprazole [PriLOSEC] 20 mg PO DAILY 05/31/17 [History] Tiotropium [Spiriva] 18 mcg IH DAILY 05/31/17 [History] Atorvastatin [Lipitor] 40 mg PO HS #30 tablet 06/02/17 [Rx] Nitroglycerin 0.4 mg SL Q5MIN PRN #30 tab.subl 06/02/17 [Rx] Albuterol Neb [Proventil Neb] 2.5 mg IH Q8H PRN 06/06/18 [History] Clopidogrel [Plavix] 75 mg PO DAILY 06/06/18 [History] Clotrimazole [Mycelex [place]iny] 10 mg MM QID 06/06/18 [History] Magnesium Oxide [Magnesium] 400 mg PO DAILY 06/06/18 [History] Metoprolol Tartrate 100 mg PO BID 06/06/18 [History] amLODIPine [Norvasc] 5 mg PO BID 06/06/18 [History] Docusate Sodium [Colace] 100 mg PO BID 5 Days #10 capsule 01/23/19 [Rx] OxyCODONE Immed Rel [Roxicodone 5 MG] 5 mg PO Q6HR PRN 5 Days #20 tablet 01/23/19 [Rx] Allergy/AdvReac Type Severity Reaction Status Date / Time No Known Allergies Allergy Verified 01/11/19 08:51 - Meds/Allergy Pre-op Review Medications Reviewed: Yes Allergies Reviewed: Yes Beta Blockers on Current Med List: Yes (metoprolol) If Beta Blockers taken, Date/Time (Last Dose taken): 01-23-19 metoprolol 8 am Anesthesia Results - Labs Laboratory Tests 01/11/19 01/11/19 01/11/19 09:10 09:10 09:10 WBC 8.3 Hgb 11.7 L Hct 38.2 Plt Count 195 PT 11.0 INR 1.0 APTT 33.9 Sodium 138 Potassium 4.6 Chloride 95 L Carbon Dioxide 37 H BUN 28 H Creatinine 1.39 H Est GFR ( Amer) > 60 Est GFR (Non-Af Amer) 51 L BUN/Creatinine Ratio 20 - Imaging EKG: report reviewed, image reviewed (Sinus rhythm Abnormal R-wave progression, early transition) Additional studies: TTE: Impressions: LVEF 60%. Normal LV chamber size and overall function. Mild concentric left ventricular hypertrophy. Mild segmental left ventricular systolic dysfunction. Mild left ventricular diastolic dysfunction. Normal right ventricular structure and function. Unable to estimate RVSP due to lack of TR jet. No significant valvular dysfunction. 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
[2019-01-23] MEDS ORDERED: CeFAZolin Syr 2,000MG/20 ML 2,000 MG/20 ML SYRINGE IVPB ONE (13:17)
[2019-01-23] MEDS ORDERED: Albuterol 2.5 MG/3 ML NEBULIZER IH ONE (13:17)
[2019-01-23] MEDS ORDERED: Ringers Solution, Lactated 1,000 ML IVC SCH ×2 (13:30→18:04)
[2019-01-23] MEDS ORDERED: *HR* OxyCODONE ER (12 HR) 10 MG TABLET PO ONE ×2 (13:41→14:45)
[2019-01-23] MEDS ORDERED: Gabapentin 100 MG CAPSULE PO ONE (13:42)
--- NOTE | 2019-01-23 13:49 | History & Physical Report ---
Date of Encounter: 01/23/19 Time of Encounter: 13:49 24 Hour HP Update - Instructions Instructions: If the History and Physical is less than 30 days old and was completed prior to A.M. admission and or procedure and has NOT been updated on calendar day of procedure please complete this update prior to performing procedure. - Update Patient reports changes in Medical Condition: No Changes in examination, assessment, or condition: No Changes in Medication: No Preop tests/diagnostics Reviewed: Yes Surgery Remains Indicated: Yes Consent for Planned Operative Procedure(s) Verified: Yes - Pre-Operative Checklist Preoperative Checklist Indicated: No Prophylactic Antibiotic Ordered: Yes Is VTE Prophylaxis Indicated?: Yes
[2019-01-23] MEDS ORDERED: *HR* OxyCODONE Immed Rel 5 MG TABLET PO PRN ×2 (13:51→18:04)
[2019-01-23] MEDS ORDERED: Ethanol\\Acetic Acid\\Na Ace\\Ben 1,000 ML IRRIG.SOLN IR ONE (14:20)
--- NOTE | 2019-01-23 14:44 | Anesthesia Procedures ---
Date of Encounter: 01/23/19 Time of Encounter: 14:38 Procedures: Anesthesia - Epidural/Spinal Patient ID/Chart reviewed: Yes Patient examined: Yes Supplemental Oxygen: Nasal Cannula Supplemental Oxygen Rate (L/min): 2 Sedation: Versed (mg): 2 Site Prep: Sterile prep and drape, 0.5% Chlorhexidine/Alcohol Patient position: upright Local Anesthetic: Lidocaine 1% Amount of Local Anesthetic used: 2 Interspace Used: L4-L5 Loss of Resistance (PAPI): No Blood: No CSF: Yes Paresthesia: No Spinal Needle Gauge: 22 Spinal Dose: 2.5 ml bupivacaine 0.5% Procedure: left total hip arthroplasty Vitals + FHT's: Vital Signs/O2 Sat, Most Current Temp Pulse Resp BP Pulse Ox 98.5 F 67 18 130/82 94 01/23/19 13:15 01/23/19 14:40 01/23/19 13:15 01/23/19 14:40 01/23/19 14:40
[2019-01-23] MEDS ORDERED: EPHEDrine 50 MG/ML VIAL ONE ×2 (15:13→15:40)
[2019-01-23] MEDS ORDERED: *HR* PHENYLEPHRINE 1,000 MCG/10 ML SYRINGE IVP ONE (15:27)
--- NOTE | 2019-01-23 15:47 | Orthopedic Operative Note ---
Date of procedure: 01/23/19 Pre-op diagnosis: Left hip arthritis Post-op diagnosis: same Procedure: Procedure: Left Total Hip Replacment robotic-assisted Estimated blood loss: 200 cc Hardware: Metal and polyethylene replacement. Catarino DM Cup: 60 cup Femoral size7 anteverted anato stem Head: 8 head with Charissa Procedural Notes: Grade 4 arthritic changes femoral head acetabular socket, procedure performed with robotic assistance. Operative leg 1 m short the nonoperative as measured by preoperative CT scan. Operative procedure: The patient was brought to the operating room and placed on the operating room table. After general anesthesia was administered the patient was placed in the lateral decubitus position with the operative leg up. All pressure points were padded appropriately and the head was stabilized in the neutral position. The operative extremity was prepped and draped in the sterile surgical fashion patient received IV antibiotic prior to skin incision. 3 Steinmann pins were placed in the iliac crest 3 cm proximal to the anterior superior iliac spine this was for the robotic-assisted sensor. This was done through a small 2 cm incision. A standard posterior approach is made to the operative hip, the incision was made through the skin and subcutaneous tissue hemostasis was obtained with Bovie cautery. Using careful sharp dissection the fascia was identified and incised exposing the external rotators. The greater trochanter was marked, and length was measured at this time utilizing robotic assistance. The external rotators were released off the greater trochanter and tagged with #2 FiberWire suture. The capsule was T'd open and the hip was brought into internal rotation. Patient noted to have grade 4 arthritic changes femoral head. The femoral neck cut was made at the appropriate level roughly 15mm proximal to the lesser trochanter aced on preoperative templating. An anterior capsulotomy was performed for the anterior retractor. Soft tissues removed from the acetabulum. Patient noted to have grade 4 arthritic changes acetabulum. The acetabulum reference point was confirmed. The acetabulum was then mapped with robotic assistance. Based on the preoperative plan the acetabulum was reamed in one step with a 60 reamer. The 60 acetabulum was impacted with robotic assistance and 37 degrees of abduction and 20 degrees of anteversion. The hip was brought back in to internal rotation and prepared with the supervisor mattress and boxsprings followed by the canal finder followed by the reaming process to a size 14 broaching process in 20 degrees anteversion. It was broached up to the appropriate size 7 Trial reduction revealed leg lengths close to normal. The femoral implant was impacted in place in 20 degrees of anteversion. Trial reduction found the hip to be stable with 8 head and Charissa. The trials were removed and the real implants were impacted in place. The hip was reduced, patient had robotic confirmed leg length of 15 mm longer than the contralateral side. The hip had excellent stability with forward flexion to 90 degrees adduction of 30 degrees and internal rotation of 60 degrees. The hip had no shuck. The hip sat with an antibacterial solution. It was irrigated out with 2 L of pulse irrigation. The Steinmann pins were removed. The hip was closed by the PA. The deep tissue was irrigated and closed deep with #1 PDS suture superficially with 0 PDS suture and skin was closed with Dermabond and zip tie. The patient was placed in a sterile dressing and abduction pillow. The patient was extubated and transferred to the recovery room in stable condition. Anesthesia: spinal (8) Surgeon: Roman Perdomo Was there an senior administrative assistant present: No Estimated blood loss (cc): 200 Condition: stable Disposition: PACU
[2019-01-23] MEDS ORDERED: *HR* Phenylephrine 10 MG/ML VIAL ONE (15:51)
[2019-01-23] MEDS: *HR* HYDROmorphone (PF) 1 MG/ML SYRINGE IVP PRN ×3 (16:58→20:34)
[2019-01-23 17:00] LABS: Hematocrit 32.5 % (37.5-50.1)
[2019-01-23] MEDS ORDERED: Ondansetron 4 MG/2 ML VIAL IVP ONE (17:09)
[2019-01-23] MEDS ORDERED: *HR* Enoxaparin 30 MG/0.3 ML SYRINGE SQ SCH (18:00)
[2019-01-23] MEDS ORDERED: HYDROcodone BIT/Homatropine 5 MG TABLET PO PRN (18:04)
[2019-01-23] MEDS ORDERED: Naloxone 0.4 MG/ML INJ IVP PRN (18:04)
[2019-01-23] MEDS ORDERED: Temazepam 15 MG CAPSULE PO PRN (18:04)
[2019-01-23] MEDS ORDERED: traMADol 50 MG TABLET PO PRN (18:04)
[2019-01-23] MEDS ORDERED: Albuterol 2.5 MG/3 ML NEBULIZER IH PRN (18:04)
[2019-01-23] MEDS ORDERED: MOM Conc 10 ML UD.LIQ PO PRN (18:04)
[2019-01-23] MEDS ORDERED: *HR* Promethazine 25 MG/ML VIAL IVP PRN (18:04)
[2019-01-23] MEDS ORDERED: Sennosides 8.6 MG TABLET PO PRN (18:04)
[2019-01-23] MEDS: Gabapentin 300 MG CAPSULE PO SCH (20:02)
[2019-01-23] MEDS: amLODIPine 5 MG TABLET PO SCH (20:03)
[2019-01-23] MEDS: Ascorbic Acid 500 MG TABLET PO SCH (20:03)
[2019-01-23] MEDS: Metoprolol 100 MG TABLET PO SCH (20:03)
[2019-01-23] MEDS: Budesonide/Formoterol 160/4.5 1 PUFF INH IH SCH (20:29)
[2019-01-24] MEDS: *HR* HYDROmorphone (PF) 1 MG/ML SYRINGE IVP PRN ×3 (02:52→15:07)
[2019-01-24] MEDS: Ondansetron 4 MG/2 ML VIAL IVP PRN ×2 (03:16→10:05)
[2019-01-24] MEDS ORDERED: *HR* Enoxaparin 30 MG/0.3 ML SYRINGE SQ SCH (06:00)
[2019-01-24 06:42] LABS: Basophils % 0.2 %; Hematocrit 36.4 % (37.5-50.1); Hemoglobin 10.9 g/dL (12.9-16.9); Immature Granulocytes % 0.6 % (0-4); Lymphocytes # 0.9 K/mcL (0.6-4.6); Lymphocytes % 8.4 %; Mean Corpuscular HGB Conc 29.9 g/dL (31.6-35.5); Mean Corpuscular Hemoglobin 28.7 pg (28.0-33.3); Mean Corpuscular Volume 95.8 fL (83.0-100.0); Mean Platelet Volume 9.7 fL (9.4-12.4); Monocytes # 0.7 K/mcL (0.0-1.3); Monocytes % 6.4 %; Neutrophils # 8.9 K/mcL (1.6-8.9); Platelet Count 162 K/mcL (140-400); Red Cell Distribution Width 15.8 % (11.5-14.5); Segmented Neutrophils % 84.4 %; White Blood Count 10.6 K/mcL (4.3-11.1)
--- NOTE | 2019-01-24 06:43 | Orthopedics Progress Note ---
Date of Encounter: 01/24/19 Time of Encounter: 06:43 Subjective Interval history: Patient was seen this morning doing well without complaints. Afebrile vital signs stable. Operative extremity: Neurovascularly intact Dressing clean dry and intact Calves nontender Assessment and plan: Continue with postoperative care Hematocrit 32 Objective Vital signs: Vital Signs Temp Pulse Resp BP Pulse Ox 01/24/19 06:40 91 01/24/19 06:29 97.5 F L 75 16 121/73 91 01/24/19 04:50 97.4 F L 70 16 130/67 92 01/23/19 23:16 97.6 F 76 20 123/70 92 01/23/19 21:40 97.7 F 82 14 121/70 93 01/23/19 20:40 97.5 F L 74 18 114/73 93 01/23/19 20:29 16 93 01/23/19 20:10 97.8 F 73 16 121/71 92 01/23/19 19:05 97.5 F L 73 20 138/74 94 01/23/19 18:36 97.9 F 78 16 125/75 90 01/23/19 17:39 97.8 F 71 18 122/73 92 01/23/19 17:25 97.8 F 71 18 114/72 91 01/23/19 17:10 71 18 129/82 91 01/23/19 17:00 71 18 135/68 92 01/23/19 16:45 72 14 133/73 96 01/23/19 16:35 73 14 122/79 97 01/23/19 16:25 97.6 F 69 14 115/70 99 01/23/19 14:40 67 130/82 94 01/23/19 14:22 73 153/83 94 01/23/19 13:15 98.5 F 75 18 133/95 95 Intake and Output 01/23/19 01/23/19 01/24/19 15:59 23:59 07:59 Intake Total 20 / 370 350 / 370 350 / 350 Output Total 200 / 200 475 / 475 Balance -180 / 170 350 / 170 -125 / -125 Intake: IV Fluids 20 / 20 Ancef Syringe 2,000 MG/20 ML 2, 20 / 20 000 mg In 20 ml @ 200 mls/hr IVPB PREOP ONE Rx#:[id number] Oral 350 / 350 350 / 350 Output: Urine 475 / 475 Estimated Blood Loss 200 / 200 Other: # Voids 1 Weight 99.79 kg 93.21 kg Blood Glucose* 136 Patient Weight 01/24/19 23:59 Weight 93.21 kg - Labs CBC & BMP: 01/24/19 06:10 Labs: Abnormal lab results RBC 3.80 M/mcL (4.19-5.50) L 01/24/19 06:10 Hgb 10.9 g/dL (12.9-16.9) L 01/24/19 06:10 Hct 36.4 % (37.5-50.1) L 01/24/19 06:10 MCHC 29.9 g/dL (31.6-35.5) L 01/24/19 06:10 RDW 15.8 % (11.5-14.5) H 01/24/19 06:10 POC Glucose 136 mg/dL (70-99) H 01/24/19 00:50 Consult Discharge Plan - Plan [facility]errals: [facility] [Primary Care Provider[facility] -
[2019-01-24 07:15] LABS: BUN/Creatinine Ratio 12 (6-26); Blood Urea Nitrogen 14 mg/dL (8-23); Calcium 8.9 mg/dL (8.6-10.3); Carbon Dioxide 33 mEq/L (23-29); Chloride 94 mEq/L (98-107); Glucose 136 mg/dL (70-105); Osmolality,Calculated 283 (280-300); Potassium 4.9 mEq/L (3.5-5.1); Sodium 135 mEq/L (136-145); eGFR For African Americans > 60 (> 60); eGFR For Non-African Americans > 60 (> 60)
[2019-01-24] MEDS: amLODIPine 5 MG TABLET PO SCH (08:05)
[2019-01-24] MEDS: Ascorbic Acid 500 MG TABLET PO SCH (08:06)
[2019-01-24] MEDS: Gabapentin 300 MG CAPSULE PO SCH ×2 (08:06→15:07)
[2019-01-24] MEDS: Metoprolol 100 MG TABLET PO SCH (08:06)
[2019-01-24] MEDS: Budesonide/Formoterol 160/4.5 1 PUFF INH IH SCH (08:06)
[2019-01-24] MEDS ORDERED: Magnesium Oxide 400 MG TABLET PO SCH (09:00)
[2019-01-24] MEDS ORDERED: Multivit/Ca/Min/Fe/FA 1 TAB TABLET PO SCH (09:00)
[2019-01-24] MEDS ORDERED: Tiotropium 18 MCG inhalation IH SCH (10:00)
[2019-01-24 15:47] VITALS: BP 115/71
== END 2019-01-24 16:30 | disposition home or self-care (01) | DRG 470 ==
LOC: SAMDAY 12:50 → 3NENU 18:13
PROVIDERS: ADMIT Orthopaedic Surgery; ATTEND Orthopaedic Surgery

== ENCOUNTER 2021-10-24 06:32 | Inpatient (IN) ==
[2021-10-24] MEDS ORDERED: methylPREDNISolone 125 MG/2 ML VIAL IVP ONE (07:06)
[2021-10-24] MEDS ORDERED: cefTRIAXone 1,000 MG in 0.9 % Sodium Chloride 10 ML IVP ONE (07:06)
[2021-10-24] MEDS ORDERED: Azithromycin 500 MG in 0.9 % Sodium Chloride 250 ML IVPB ONE (07:06)
[2021-10-24] MEDS ORDERED: Ipratropium/Albuterol Neb 3 ML IH ONE (07:07)
[2021-10-24 07:35] LABS: Alanine Aminotransferase 9 Units/L (7-52); Albumin 3.5 g/dL (3.5-5.7); Alkaline Phosphatase 48 Units/L (34-104); Aspartate Amino Transferase 11 Units/L (13-39); BUN/Creatinine Ratio 14 (6-26); Bilirubin,Direct 0.1 mg/dL (0.0-0.2); Bilirubin,Indirect 0.3 mg/dL (0.0-1.0); Bilirubin,Total 0.4 mg/dL (0.3-1.0); Blood Urea Nitrogen 18 mg/dL (8-23); Calcium 9.3 mg/dL (8.6-10.3); Carbon Dioxide 38 mEq/L (23-29); Chloride 94 mEq/L (98-107); Globulin 3.4 g/dL (2.4-3.5); Glucose 109 mg/dL (70-105); Osmolality,Calculated 284 (280-300); Potassium 4.3 mEq/L (3.5-5.1); Sodium 136 mEq/L (136-145); Total Protein 6.9 g/dL (6.4-8.9); Troponin I < 0.03 ng/mL (< 0.04); eGFR For African Americans > 60 (> 60); eGFR For Non-African Americans 53 (> 60)
[2021-10-24 08:23] LABS: Basophils % 0.4 %; Eosinophils # 0.1 K/mcL (0.0-0.6); Eosinophils % 1.5 %; Hematocrit 33.1 % (37.5-50.1); Hemoglobin 9.8 g/dL (12.9-16.9); Lymphocytes # 1.2 K/mcL (0.6-4.6); Lymphocytes % 16.9 %; Mean Corpuscular HGB Conc 29.6 g/dL (31.6-35.5); Mean Corpuscular Hemoglobin 28.7 pg (28.0-33.3); Mean Corpuscular Volume 96.8 fL (83.0-100.0); Mean Platelet Volume 10.2 fL (9.4-12.4); Monocytes # 0.8 K/mcL (0.0-1.3); Monocytes % 11.2 %; Platelet Count 156 K/mcL (140-400); Red Blood Count 3.42 M/mcL (4.19-5.50); Red Cell Distribution Width 15.8 % (11.5-14.5); White Blood Count 7.2 K/mcL (4.3-11.1)
[2021-10-24 08:27] LABS: Influenza A PCR Negative (Negative); Influenza B PCR Negative (Negative); Resp. Syncytial Virus PCR Negative (Negative)
[2021-10-24] MEDS ORDERED: Albuterol 2.5 MG/3 ML NEBULIZER IH ONE (09:00)
[2021-10-24 09:02] LABS: SARS-CoV-2 by PCR (In House) Negative (Negative)
[2021-10-24] MEDS ORDERED: Naloxone 0.4 MG/ML INJ IVP PRN (11:08)
[2021-10-24] MEDS: methylPREDNISolone 125 MG/2 ML VIAL IVP SCH ×3 (15:28→23:06)
[2021-10-24] MEDS: Ipratropium/Albuterol Neb 3 ML IH SCH ×3 (15:50→21:10)
[2021-10-24] MEDS: Gabapentin 400 MG CAPSULE PO SCH ×2 (16:55→20:44)
[2021-10-24] MEDS: amLODIPine 5 MG TABLET PO SCH (20:45)
[2021-10-24] MEDS ORDERED: Melatonin 3 MG TABLET PO PRN (21:00)
[2021-10-25] MEDS: Ipratropium/Albuterol Neb 3 ML IH SCH ×4 (03:55→20:46)
[2021-10-25] MEDS: *HR* Enoxaparin 40 MG/0.4 ML SYRINGE SQ SCH (05:58)
[2021-10-25] MEDS: Azithromycin 250 MG TABLET PO SCH (05:58)
[2021-10-25 06:28] LABS: Hematocrit 33.7 % (37.5-50.1); Hemoglobin 9.9 g/dL (12.9-16.9); Immature Granulocytes % 0.4 % (0-4); Lymphocytes # 0.5 K/mcL (0.6-4.6); Lymphocytes % 6.6 %; Mean Corpuscular HGB Conc 29.4 g/dL (31.6-35.5); Mean Corpuscular Volume 95.2 fL (83.0-100.0); Monocytes # 0.1 K/mcL (0.0-1.3); Monocytes % 2.1 %; Neutrophils # 6.2 K/mcL (1.6-8.9); Nucleated Red Blood Cells 0.3 /100 WBC (0); Platelet Count 149 K/mcL (140-400); Red Blood Count 3.54 M/mcL (4.19-5.50); Red Cell Distribution Width 15.2 % (11.5-14.5); Segmented Neutrophils % 90.9 %; White Blood Count 6.8 K/mcL (4.3-11.1)
[2021-10-25 06:51] LABS: BUN/Creatinine Ratio 18 (6-26); Blood Urea Nitrogen 24 mg/dL (8-23); Calcium 9.3 mg/dL (8.6-10.3); Carbon Dioxide 38 mEq/L (23-29); Chloride 94 mEq/L (98-107); Glucose 174 mg/dL (70-105); Osmolality,Calculated 288 (280-300); Potassium 5.3 mEq/L (3.5-5.1); Sodium 135 mEq/L (136-145); eGFR For African Americans > 60 (> 60); eGFR For Non-African Americans 54 (> 60)
[2021-10-25] MEDS: amLODIPine 5 MG TABLET PO SCH ×2 (08:48→20:11)
[2021-10-25] MEDS: cefTRIAXone 1,000 MG in 0.9 % Sodium Chloride 10 ML IVP SCH (08:49)
[2021-10-25] MEDS: Gabapentin 400 MG CAPSULE PO SCH ×2 (08:49→20:12)
[2021-10-25] MEDS: Tiotropium 10 INH DOSE IH SCH (10:44)
[2021-10-25] MEDS: methylPREDNISolone 125 MG/2 ML VIAL IVP SCH (15:11)
[2021-10-26] MEDS: methylPREDNISolone 125 MG/2 ML VIAL IVP SCH ×4 (00:16→23:59)
[2021-10-26 02:25] LABS: Calcium 9.2 mg/dL (8.6-10.3); Magnesium 1.6 mg/dL (1.6-2.6); Phosphorous 4.6 mg/dL (2.7-4.5); Potassium 5.8 mEq/L (3.5-5.1)
[2021-10-26] MEDS ORDERED: Albuterol 2.5 MG/3 ML NEBULIZER IH ONE (02:45)
[2021-10-26] MEDS ORDERED: *HR* Dextrose 50 % in Water (Vial) 50 ML VIAL IVP ONE (02:45)
[2021-10-26] MEDS ORDERED: Insulin Human Regular 10 UNIT in 0.9 % Sodium Chloride 10 ML IV ONE (02:45)
[2021-10-26 03:07] LABS: ABG Base Excess 9 mEq/L (-2 to 3); ABG HCO3 39 mEq/L (21-27); ABG Oxygen Saturation 93 % (95-98); ABG PCO2 90 mmHg (35-45); ABG PH 7.25 pH Units (7.32-7.45); ABG PO2 85 mmHg (85-104); ABG TCO2 42 mEq/L (20-26)
[2021-10-26] MEDS: Ipratropium/Albuterol Neb 3 ML IH SCH ×4 (03:20→22:56)
[2021-10-26] MEDS ORDERED: *HR* LORazepam 2 MG/ML VIAL IVP ONE (04:59)
[2021-10-26] MEDS: Azithromycin 250 MG TABLET PO SCH (05:31)
[2021-10-26] MEDS: *HR* Enoxaparin 40 MG/0.4 ML SYRINGE SQ SCH (05:32)
[2021-10-26 07:16] LABS: ABG Base Excess 12 mEq/L (-2 to 3); ABG HCO3 45 mEq/L (21-27); ABG Oxygen Saturation 93 % (95-98); ABG PCO2 129 mmHg (35-45); ABG PH 7.15 pH Units (7.32-7.45); ABG PO2 93 mmHg (85-104); ABG TCO2 49 mEq/L (20-26)
[2021-10-26] MEDS ORDERED: D5% in Water 1,000 ML IVC PRN (07:52)
[2021-10-26] MEDS ORDERED: *HR* Dextrose 50 % in Water (Syg) 50 ML SYRINGE IVP PRN (07:52)
[2021-10-26] MEDS ORDERED: Dextrose 4 GM Chewable Tablets PO PRN ×2 (07:52)
[2021-10-26] MEDS: cefTRIAXone 1,000 MG in 0.9 % Sodium Chloride 10 ML IVP SCH (08:22)
[2021-10-26 08:24] LABS: ABG Base Excess 12 mEq/L (-2 to 3); ABG HCO3 46 mEq/L (21-27); ABG Oxygen Saturation 95 % (95-98); ABG PCO2 134 mmHg (35-45); ABG PH 7.14 pH Units (7.32-7.45); ABG PO2 109 mmHg (85-104); ABG TCO2 50 mEq/L (20-26); Blood Gas VT 500 cc
[2021-10-26] MEDS: SODIUM ZIRCONIUM CYCLOSILICATE 5 GM POWD.PACK PO SCH ×2 (09:11→12:00)
[2021-10-26] MEDS: Magnesium Oxide 400 MG TABLET PO SCH ×2 (09:11→11:59)
[2021-10-26] MEDS: Gabapentin 400 MG CAPSULE PO SCH ×3 (09:12→20:28)
[2021-10-26] MEDS: amLODIPine 5 MG TABLET PO SCH ×3 (09:12→20:28)
[2021-10-26 09:41] LABS: ABG Base Excess 11 mEq/L (-2 to 3); ABG HCO3 43 mEq/L (21-27); ABG Oxygen Saturation 96 % (95-98); ABG PCO2 99 mmHg (35-45); ABG PH 7.24 pH Units (7.32-7.45); ABG PO2 100 mmHg (85-104); ABG TCO2 46 mEq/L (20-26); Blood Gas VT 550 cc
[2021-10-26] MEDS: Tiotropium 10 INH DOSE IH SCH (10:02)
[2021-10-26] MEDS ORDERED: Furosemide 20 MG/2 ML VIAL IVP ONE (10:14)
[2021-10-26] MEDS ORDERED: Insulin LISPRO 300 UNITS/3 ML VIAL SUBQ SCH (12:00)
[2021-10-27] MEDS: Ipratropium/Albuterol Neb 3 ML IH SCH ×2 (04:02→10:45)
[2021-10-27] MEDS: Azithromycin 250 MG TABLET PO SCH (06:06)
[2021-10-27] MEDS: *HR* Enoxaparin 40 MG/0.4 ML SYRINGE SQ SCH (06:09)
[2021-10-27 06:14] LABS: Bilirubin,Urine Negative (Negative); Blood,Urine Negative (Negative); Clarity,Urine Clear (Clear); Color,Urine Light-Yellow (Yellow); Glucose,Urine (UA) Normal (Normal); Ketones,Urine Negative (Negative); Leukocyte Esterase,Urine Negative (Negative); Nitrite,Urine Negative (Negative); Protein,Urine Trace mg/dL (Neg-Trace); Specific Gravity,Urine 1.016 (1.010-1.025); Urobilinogen,Urine Normal (Normal)
[2021-10-27] MEDS: methylPREDNISolone 125 MG/2 ML VIAL IVP SCH (07:35)
[2021-10-27] MEDS: cefTRIAXone 1,000 MG in 0.9 % Sodium Chloride 10 ML IVP SCH (07:35)
[2021-10-27 08:24] LABS: Magnesium 1.7 mg/dL (1.6-2.6); Phosphorous 3.3 mg/dL (2.7-4.5); Potassium 5.4 mEq/L (3.5-5.1)
[2021-10-27] MEDS: Magnesium Oxide 400 MG TABLET PO SCH (09:04)
[2021-10-27] MEDS: amLODIPine 5 MG TABLET PO SCH (09:04)
[2021-10-27] MEDS: SODIUM ZIRCONIUM CYCLOSILICATE 5 GM POWD.PACK PO SCH (09:05)
[2021-10-27] MEDS: Gabapentin 400 MG CAPSULE PO SCH (09:05)
[2021-10-27] MEDS: Tiotropium 10 INH DOSE IH SCH (10:44)
[2021-10-27 10:47] VITALS: O2SAT 91
[2021-10-27 10:48] VITALS: BP 125/75; PULSE 78; TEMP 98.9
== END 2021-10-27 11:25 | disposition home or self-care (01) | DRG 193 ==
LOC: EMEROOARM 06:32 → 3NENU 06:32 → SUATTDRO 10:43 → 3NENU 11:09
PROVIDERS: ADMIT Student in an Organized Health Care Education/Training Program; ATTEND Internal Medicine

== ENCOUNTER 2021-11-10 20:43 | Inpatient (IN) ==
[2021-11-10] MEDS ORDERED: Morphine Sulfate 2 MG/ML SYRINGE IVP ONE (21:42)
[2021-11-10] MEDS ORDERED: Ondansetron 4 MG/2 ML VIAL IVP PRN (21:42)
[2021-11-10] MEDS: Gabapentin 400 MG CAPSULE PO SCH (22:20)
[2021-11-10 22:32] LABS: Basophils % 0.1 %; Mean Corpuscular Volume 95.2 fL (83.0-100.0)
[2021-11-10 22:34] LABS: Eosinophils # 0.1 K/mcL (0.0-0.6); Hematocrit 31.9 % (37.5-50.1); Hemoglobin 9.5 g/dL (12.9-16.9); Immature Granulocytes % 0.4 % (0-4); Immature Platelets 2.7 % (1.1-6.1); Lymphocytes # 0.8 K/mcL (0.6-4.6); Lymphocytes % 12.2 %; Mean Corpuscular HGB Conc 29.8 g/dL (31.6-35.5); Mean Corpuscular Hemoglobin 28.4 pg (28.0-33.3); Monocytes # 0.6 K/mcL (0.0-1.3); Monocytes % 9.3 %; Neutrophils # 5.2 K/mcL (1.6-8.9); Platelet Count 108 K/mcL (140-400); Red Blood Count 3.35 M/mcL (4.19-5.50); White Blood Count 6.8 K/mcL (4.3-11.1)
[2021-11-10 22:39] LABS: INR 1.2; Prothrombin Time 13.4 Seconds (9.4-12.1)
[2021-11-10 22:41] LABS: Activated Partial Thrombo Time 30.8 Seconds (26.0-36.0)
[2021-11-10 23:10] LABS: Alanine Aminotransferase 11 Units/L (7-52); Alkaline Phosphatase 42 Units/L (34-104); Aspartate Amino Transferase 8 Units/L (13-39); BUN/Creatinine Ratio 15 (6-26); Bilirubin,Direct 0.1 mg/dL (0.0-0.2); Bilirubin,Indirect 0.3 mg/dL (0.0-1.0); Bilirubin,Total 0.4 mg/dL (0.3-1.0); Blood Urea Nitrogen 21 mg/dL (8-23); Calcium 8.5 mg/dL (8.6-10.3); Carbon Dioxide 41 mEq/L (23-29); Chloride 96 mEq/L (98-107); Glucose 94 mg/dL (70-105); Osmolality,Calculated 291 (280-300); Potassium 4.7 mEq/L (3.5-5.1); Sodium 139 mEq/L (136-145); Total Protein 5.6 g/dL (6.4-8.9); eGFR For African Americans 59 (> 60); eGFR For Non-African Americans 48 (> 60)
[2021-11-10 23:11] LABS: Albumin 2.9 g/dL (3.5-5.7); Albumin/Globulin Ratio 1.1 (1.1-2.2); Creatine Kinase 15 Units/L (30-223); Globulin 2.7 g/dL (2.4-3.5); Troponin I < 0.03 ng/mL (< 0.04)
[2021-11-10] MEDS ORDERED: cefTRIAXone 1,000 MG in 0.9 % Sodium Chloride Mini Bag 100 ML IVPB ONE (23:27)
[2021-11-10] MEDS ORDERED: methylPREDNISolone 125 MG/2 ML VIAL IVP ONE (23:27)
[2021-11-10] MEDS ORDERED: Ipratropium/Albuterol Neb 3 ML IH ONE (23:27)
[2021-11-10] MEDS ORDERED: Azithromycin 500 MG in 0.9 % Sodium Chloride 250 ML IVPB ONE (23:27)
[2021-11-10 23:39] LABS: ABG Base Excess 8 mEq/L (-2 to 3); ABG HCO3 38 mEq/L (21-27); ABG Oxygen Saturation 86 % (95-98); ABG PCO2 97 mmHg (35-45); ABG PH 7.21 pH Units (7.32-7.45); ABG PO2 66 mmHg (85-104); ABG TCO2 41 mEq/L (20-26)
[2021-11-11] MEDS ORDERED: Naloxone 0.4 MG/ML INJ IVP PRN (03:15)
[2021-11-11] MEDS ORDERED: Ondansetron 4 MG/2 ML VIAL IVP PRN (03:15)
[2021-11-11 04:19] LABS: Bacteria,Urine Few per hpf (None-Few); Bilirubin,Urine Negative (Negative); Blood,Urine Negative (Negative); Clarity,Urine Clear (Clear); Color,Urine Light-Yellow (Yellow); Glucose,Urine (UA) Normal (Normal); Ketones,Urine Negative (Negative); Leukocyte Esterase,Urine Negative (Negative); Mucus,Urine Few per lpf (None-Few); Nitrite,Urine Negative (Negative); Protein,Urine 30 mg/dL (Neg-Trace); RBC,Urine 0-3 per hpf (0-3); Specific Gravity,Urine 1.013 (1.010-1.025); Squamous Epithelial Cell,Urine Few per hpf (None-Few); Urobilinogen,Urine Normal (Normal); WBC,Urine 0-3 per hpf (0-3)
[2021-11-11 04:34] LABS: Hematocrit 34.8 % (37.5-50.1); Hemoglobin 10.1 g/dL (12.9-16.9); Immature Granulocytes % 0.5 % (0-4); Red Cell Distribution Width 15.9 % (11.5-14.5)
[2021-11-11 04:36] LABS: Basophils % 0.2 %; Immature Platelets 2.1 % (1.1-6.1); Lymphocytes # 0.4 K/mcL (0.6-4.6); Lymphocytes % 5.6 %; Mean Corpuscular Hemoglobin 27.9 pg (28.0-33.3); Mean Corpuscular Volume 96.1 fL (83.0-100.0); Mean Platelet Volume 9.6 fL (9.4-12.4); Monocytes # 0.2 K/mcL (0.0-1.3); Monocytes % 2.3 %; Platelet Count 100 K/mcL (140-400); Red Blood Count 3.62 M/mcL (4.19-5.50); Segmented Neutrophils % 91.4 %; White Blood Count 6.6 K/mcL (4.3-11.1)
[2021-11-11 04:36] LABS: Amphetamine Screen,Urine Negative ng/mL (Cutoff=1000); Barbiturate Screen,Urine Negative ng/mL (Cutoff=200); Benzodiazepines Screen,Urine Negative ng/mL (Cutoff=200); Cannabinoid Screen,Urine Positive ng/mL (Cutoff = 50); Cocaine Screen,Urine Negative ng/mL (Cutoff= 300); Opiate Screen,Urine Positive ng/mL (Cutoff=300); Phencyclidine Screen,Urine Negative ng/mL (Cutoff=25)
[2021-11-11 04:45] LABS: INR 1.1; Prothrombin Time 12.6 Seconds (9.4-12.1)
[2021-11-11 04:53] LABS: Alanine Aminotransferase 12 Units/L (7-52); Albumin 3.1 g/dL (3.5-5.7); Albumin/Globulin Ratio 0.9 (1.1-2.2); Alkaline Phosphatase 48 Units/L (34-104); Aspartate Amino Transferase 9 Units/L (13-39); BUN/Creatinine Ratio 14 (6-26); Bilirubin,Total 0.4 mg/dL (0.3-1.0); Blood Urea Nitrogen 20 mg/dL (8-23); Calcium 8.8 mg/dL (8.6-10.3); Carbon Dioxide 37 mEq/L (23-29); Chloride 96 mEq/L (98-107); Globulin 3.3 g/dL (2.4-3.5); Glucose 148 mg/dL (70-105); Magnesium 1.3 mg/dL (1.6-2.6); Osmolality,Calculated 291 (280-300); Phosphorous 4.7 mg/dL (2.7-4.5); Potassium 5.4 mEq/L (3.5-5.1); Sodium 138 mEq/L (136-145); Total Protein 6.4 g/dL (6.4-8.9); Troponin I < 0.03 ng/mL (< 0.04); eGFR For African Americans 60 (> 60); eGFR For Non-African Americans 49 (> 60)
[2021-11-11] MEDS ORDERED: Albuterol 2.5 MG/3 ML NEBULIZER IH PRN (04:54)
[2021-11-11 05:12] LABS: Adenovirus Not Detected (Not Detect); Bordetella Pertussis Not Detected (Not Detect); Chlamydophila pneumoniae Not Detected (Not Detect); Coronavirus 229E Not Detected (Not Detect); Coronavirus HKU1 Not Detected (Not Detect); Coronavirus NL63 Not Detected (Not Detect); Coronavirus OC43 Not Detected (Not Detect); Human Metapneumovirus Not Detected (Not Detect); Human Rhinovirus/Enterovirus Not Detected (Not Detect); Influenza A Subtype 2009 H1 Not Detected (Not Detect); Influenza B Not Detected (Not Detect); Mycoplasma pneumoniae Not Detected (Not Detect); Parainfluenza Virus 1 Not Detected (Not Detect); Parainfluenza Virus 2 Not Detected (Not Detect); Parainfluenza Virus 3 Not Detected (Not Detect); Parainfluenza Virus 4 Not Detected (Not Detect); Respiratory Syncytial Virus Not Detected (Not Detect); SARS-CoV-2 Not Detected (Not Detect)
[2021-11-11] MEDS: *HR* Heparin 5,000 UNIT/ML VIAL SQ SCH ×2 (06:28→18:39)
[2021-11-11 07:16] LABS: ABG Base Excess 10 mEq/L (-2 to 3); ABG HCO3 42 mEq/L (21-27); ABG Oxygen Saturation 95 % (95-98); ABG PCO2 103 mmHg (35-45); ABG PH 7.22 pH Units (7.32-7.45); ABG PO2 99 mmHg (85-104); ABG TCO2 45 mEq/L (20-26); Blood Gas Modality AVAPS; Blood Gas VT 550 cc
[2021-11-11] MEDS: Ipratropium/Albuterol Neb 3 ML IH SCH ×4 (07:20→21:58)
[2021-11-11 10:36] LABS: ABG Base Excess 9 mEq/L (-2 to 3); ABG HCO3 37 mEq/L (21-27); ABG Oxygen Saturation 91 % (95-98); ABG PCO2 67 mmHg (35-45); ABG PH 7.35 pH Units (7.32-7.45); ABG PO2 68 mmHg (85-104); ABG TCO2 39 mEq/L (20-26)
[2021-11-11] MEDS: MethylPREDNISolone 40 MG/ML VIAL IVP SCH ×4 (13:27→23:24)
[2021-11-11] MEDS: Gabapentin 400 MG CAPSULE PO SCH (20:56)
[2021-11-11] MEDS: Melatonin 3 MG TABLET PO PRN (20:57)
[2021-11-11] MEDS: amLODIPine 5 MG TABLET PO SCH (20:59)
[2021-11-11] MEDS: Budesonide/Formoterol 160/4.5 1 PUFF INH IH SCH (21:59)
[2021-11-11] MEDS ORDERED: Azithromycin 500 MG in 0.9 % Sodium Chloride 250 ML IVPB SCH (23:00)
[2021-11-11] MEDS: cefTRIAXone 1,000 MG in 0.9 % Sodium Chloride 10 ML IVP SCH (23:23)
[2021-11-12] MEDS: Ipratropium/Albuterol Neb 3 ML IH SCH ×2 (04:36→10:43)
[2021-11-12] MEDS: *HR* Heparin 5,000 UNIT/ML VIAL SQ SCH ×2 (05:33→16:51)
[2021-11-12] MEDS: MethylPREDNISolone 40 MG/ML VIAL IVP SCH ×2 (05:34→16:51)
[2021-11-12 06:03] LABS: ABG Base Excess 10 mEq/L (-2 to 3); ABG HCO3 37 mEq/L (21-27); ABG Oxygen Saturation 92 % (95-98); ABG PCO2 65 mmHg (35-45); ABG PH 7.37 pH Units (7.32-7.45); ABG PO2 69 mmHg (85-104); ABG TCO2 39 mEq/L (20-26)
[2021-11-12] MEDS: Magnesium Oxide 400 MG TABLET PO SCH (08:39)
[2021-11-12] MEDS: amLODIPine 5 MG TABLET PO SCH ×2 (08:39→20:59)
[2021-11-12] MEDS: cefTRIAXone 1,000 MG in 0.9 % Sodium Chloride 10 ML IVP SCH (08:40)
[2021-11-12] MEDS ORDERED: predniSONE 10 MG TABLET PO SCH (09:00)
[2021-11-12] MEDS: Gabapentin 400 MG CAPSULE PO SCH ×2 (10:19→20:59)
[2021-11-12] MEDS: Budesonide/Formoterol 160/4.5 1 PUFF INH IH SCH ×2 (10:43→20:28)
[2021-11-12] MEDS ORDERED: Ipratropium/Albuterol Neb 3 ML IH PRN (11:30)
[2021-11-12] MEDS: Melatonin 3 MG TABLET PO PRN (20:59)
[2021-11-13] MEDS ORDERED: Menthol 1 EACH LOZENGE PO PRN (00:14)
[2021-11-13 04:56] LABS: Hematocrit 30.1 % (37.5-50.1); Immature Granulocytes % 0.5 % (0-4); Lymphocytes # 0.5 K/mcL (0.6-4.6); Lymphocytes % 5.4 %; Mean Corpuscular HGB Conc 29.9 g/dL (31.6-35.5); Mean Corpuscular Hemoglobin 28.2 pg (28.0-33.3); Mean Corpuscular Volume 94.4 fL (83.0-100.0); Mean Platelet Volume 9.6 fL (9.4-12.4); Monocytes # 0.3 K/mcL (0.0-1.3); Monocytes % 3.3 %; Neutrophils # 8.6 K/mcL (1.6-8.9); Platelet Count 117 K/mcL (140-400); Red Blood Count 3.19 M/mcL (4.19-5.50); Red Cell Distribution Width 16.1 % (11.5-14.5); Segmented Neutrophils % 90.8 %; White Blood Count 9.5 K/mcL (4.3-11.1)
[2021-11-13 05:16] LABS: Calcium 8.7 mg/dL (8.6-10.3); Magnesium 1.4 mg/dL (1.6-2.6); Phosphorous 4.6 mg/dL (2.7-4.5); Potassium 5.2 mEq/L (3.5-5.1)
[2021-11-13] MEDS: MethylPREDNISolone 40 MG/ML VIAL IVP SCH (06:23)
[2021-11-13] MEDS: *HR* Heparin 5,000 UNIT/ML VIAL SQ SCH (06:24)
[2021-11-13] MEDS: Budesonide/Formoterol 160/4.5 1 PUFF INH IH SCH (07:34)
[2021-11-13] MEDS ORDERED: levoFLOXacin 750 MG TABLET PO SCH (09:00)
[2021-11-13] MEDS: Gabapentin 400 MG CAPSULE PO SCH (09:36)
[2021-11-13] MEDS: Magnesium Oxide 400 MG TABLET PO SCH (09:37)
[2021-11-13] MEDS: amLODIPine 5 MG TABLET PO SCH (09:37)
[2021-11-13 11:56] VITALS: BP 155/70; PULSE 72; TEMP 98.9; O2SAT 93
== END 2021-11-13 16:30 | disposition hospice, home (50) | DRG 193 ==
LOC: EMEROOARM 20:43 → 3NENU 20:43 → SUATTDRO 11-11 01:57 → 3NENU 11-11 03:04 → SUATTDRO 11-12 16:19
PROVIDERS: ADMIT Internal Medicine; ATTEND Internal Medicine